=== PATIENT | male | born 1975 | race Caucasian/White ===

== ENCOUNTER 2020-05-01 09:21 | Emergency (ER) | payer MEDICAID ==
[~2020-05-01] VITALS: Ht 177.8 cm; Wt 77.3 kg
[2020-05-01 09:26] VITALS: BP 112/74
[2020-05-01] MEDS ORDERED: NAPR-56 PO (10:07)
[2020-05-01] MEDS ORDERED: HYDR-4383 PO (10:07)
== END 2020-05-01 10:52 | disposition home or self-care (01) ==
LOC: ER 09:22
DX: S43.51XA Sprain of right acromioclavicular joint, initial encounter (principal); F17.200 Nicotine dependence, unspecified, uncomplicated; F12.90 Cannabis use, unspecified, uncomplicated; Z72.89 Other problems related to lifestyle; Z79.899 Other long term (current) drug therapy; X58.XXXA Exposure to other specified factors, initial encounter; Y93.89 Activity, other specified; Y92.89 Other specified places as the place of occurrence of the external cause; Y99.8 Other external cause status
CPT/HCPCS: 73030; 99283